=== PATIENT | female | born 1995 | race Hispanic/Latino ===

== ENCOUNTER → 2025-10-24 | Outpatient (CLI) | payer OTHER ==
--- NOTE | 2025-10-24 15:00 | HMCIMG ---
BILATERAL BREAST ULTRASOUND: CLINICAL HISTORY: Family history of breast cancer Finding: Real-time examination of the both breasts demonstrates homogeneous echotexture throughout both the breasts without evidence of focal solid or cystic masses. There are bilateral small axillary lymph nodes IMPRESSION: Normal breast sonogram FINAL ASSESSMENT: ACR: BI-RAD - 1. Negative Mammogram.
== END | disposition home or self-care (01) ==
LOC: RAH 14:10
PROVIDERS: ATTEND Family Medicine
DX: N64.4 Mastodynia (principal); R92.333 Mammographic heterogeneous density, bilateral breasts; Z80.3 Family history of malignant neoplasm of breast